=== PATIENT | female | born 1995 | race Caucasian/White ===

== ENCOUNTER 2022-07-22 10:56 | Emergency (ER) | payer MEDICAID, OTHER ==
[~2022-07-22] VITALS: Ht 160 cm; Wt 89.4 kg
[2022-07-22 11:03] VITALS: BP 119/61
--- NOTE | 2022-07-22 11:06 | NUR ---
PT AMBULATED TO LOBBY
--- NOTE | 2022-07-22 11:10 | NUR ---
27/F WALKED IN C/O RIGHT ANKLE PAIN S/P FALL YESTERDAY. PT DENIES LOC OR TRAUMA TO HEAD. REPORTS CONSTANT 8/10 PAIN THAT GETS WORSE WITH MOVEMENT OR WEIGHT BEARING. AAO4, AMBULATORY, VITALS STABLE. PMH: DENIES
[2022-07-22] MEDS ORDERED: KETOROLAC 30 MG/ML VIAL IM ONE (12:25)
[2022-07-22] MEDS ORDERED: IBUP-2213 PO (12:28)
--- NOTE | 2022-07-22 12:45 | NUR ---
SHIV WRAP X 1 APPLIED TO R ANKLE. + CMS. PT GIVEN CRUTCHES AND RETURNED SAFE DEMONSTRATION OF USE.
[2022-07-22 13:00] VITALS: BP 119/61
--- NOTE | 2022-07-22 13:00 | NUR ---
Patient discharged with v/s stable. Written and verbal after care instructions given and explained. Patient alert, oriented and verbalized understanding of instructions. Ambulatory with steady gait. All questions addressed prior to discharge. ID band removed. Patient advised to follow up with PMD. Rx of IBUPROFEN (SENT) given. Patient educated on indication of medication including possible reaction and side effects. Opportunity to ask questions provided and answered. COPY OF IMAGING GIVEN WORK NOTE GIVEN
== END 2022-07-22 13:00 | disposition home or self-care (01) ==
LOC: MED 10:56
DX: S93.401A Sprain of unspecified ligament of right ankle, initial encounter (principal); J45.909 Unspecified asthma, uncomplicated; X58.XXXA Exposure to other specified factors, initial encounter; Y93.89 Activity, other specified; Y92.89 Other specified places as the place of occurrence of the external cause; Y99.8 Other external cause status
CPT/HCPCS: 73610; 96372; 99283; J1885

== ENCOUNTER 2023-01-20 07:44 | Emergency (ER) | payer MEDICAID ==
[~2023-01-20] VITALS: Ht 160 cm; Wt 89.4 kg
[~2023-01-20 07:44] MED LIST: IBUP-2213 PO
[2023-01-20 08:08] VITALS: BP 105/84; PULSE 83; RESP 20; TEMP 98.1; O2SAT 98
[2023-01-20] MEDS ORDERED: ALUMINUM HYD/MAG/SIMETHICONE 30 ML UDC PO ONE (08:45)
[2023-01-20] MEDS ORDERED: FAMOTIDINE 20 MG TAB PO ONE (08:45)
[2023-01-20 09:07] LABS: BASOPHILS % (AUTO) 0.6 % (0.0-2.0); EOSINOPHILS # (AUTO) 0.1 K/uL (0-0.4); EOSINOPHILS % (AUTO) 1.5 % (0.0-4.0); HEMATOCRIT 39.7 % (36-48); HEMOGLOBIN 13.3 g/dL (12.0-16.0); LYMPHOCYTES # (AUTO) 2.5 K/uL (2.5-16.5); LYMPHOCYTES % (AUTO) 28.8 % (20.5-51.1); MEAN CORPUSCULAR HEMOGLOBIN 31 pg (27-31); MEAN CORPUSCULAR HGB CONC 34 g/dL (33-37); MEAN CORPUSCULAR VOLUME 92.2 fL (80-94); MONOCYTES # (AUTO) 0.5 K/uL (0.8-1.0); MONOCYTES % (AUTO) 5.3 % (1.7-9.3); NEUTROPHILS # (AUTO) 5.6 K/uL (1.8-7.7); NEUTROPHILS % (AUTO) 63.8 % (42.2-75.2); PLATELET COUNT (AUTO) 245 K/uL (140-450); RED CELL DISTRIBUTION WIDTH 12.9 % (11.6-13.7); WHITE BLOOD COUNT (AUTO) 8.8 K/uL (4.8-10.8)
[2023-01-20 09:23] LABS: ALBUMIN 3.5 g/dL (3.4-5.0); ANION GAP 10.5 (8-16); CALCIUM 8.3 mg/dL (8.5-10.1); CARBON DIOXIDE 26.6 mmol/L (21-32); CREATININE 0.9 mg/dL (0.6-1.3); POTASSIUM 4.1 mmol/L (3.5-5.1); TOTAL BILIRUBIN 0.3 mg/dL (0.0-1.0)
[2023-01-20] MEDS ORDERED: SUCR1TAB35 PO (09:48)
[2023-01-20] MEDS ORDERED: MIRABULK PO (09:48)
[2023-01-20] MEDS ORDERED: FAMO-92 PO (09:48)
[2023-01-20] MEDS ORDERED: PANT40EC PO (09:48)
== END 2023-01-20 09:59 | disposition home or self-care (01) ==
LOC: MED 07:44
DX: K29.70 Gastritis, unspecified, without bleeding (principal); K59.00 Constipation, unspecified; J45.909 Unspecified asthma, uncomplicated; Z79.899 Other long term (current) drug therapy; Z79.1 Long term (current) use of non-steroidal anti-inflammatories (NSAID)
CPT/HCPCS: 36415; 80053; 81002; 81025; 83690; 85025; 99284